=== PATIENT | male | born 1975 | race Caucasian/White ===

== ENCOUNTER → 2022-06-11 | Outpatient (CLI) | payer BC ==
--- NOTE | 2022-06-11 09:05 | US ---
EXAMINATION TYPE: US abdomen complete DATE OF EXAM: 06/11/2022 COMPARISON: CT 2013 CLINICAL HISTORY: 47-year-old male R10.13 EPIGASTRIC PAIN. Epigastric pain and gassiness x 2 weeks TECHNIQUE: Multiple sonographic images of the abdomen are obtained. FINDINGS: EXAM MEASUREMENTS: Liver Length: 15.7 cm Gallbladder Wall: 0.2 cm CBD: 0.5 cm Spleen: 12.3 cm Right Kidney: 13.4 x 6.8 x 5.5 cm Left Kidney: 12.6 x 5.6 x 5.8 cm Difficult and limited study due to patient body habitus Pancreas: Only a portion of the pancreatic neck and body is seen. Pancreatic tail and head are obscu red by bowel gas shadowing. Liver: increased attenuation, decreased visualization of vessels suggestive of fatty infiltrate Gallbladder: borderline hydropic, sludge, 1.5cm stone Evidence for sonographic Corral's sign: no CBD: visualized portions wnl Spleen: wnl Right Kidney: wnl Left Kidney: At least moderate hydronephrosis Upper IVC: wnl Abd Aorta: proximal portion obscured by overlying midline bowel gas, visualized portions of mid and distal appear wnl IMPRESSION: 1. Technically limited exam due to body habitus and bowel gas. 2. Underlying hepatic steatosis. Correlate with LFTs, liver profile, and patient risk factors. 3. Cholelithiasis with a 1.5 cm gallstone. Additional sludge. Gallbladder is borderline distended pro bably due to fasting state. No wall thickening or sonographic Corral sign to suggest acute cholecysti tis at this time. 4. There appears to be at least moderate left-sided hydronephrosis; etiology unclear. Consider urolog y evaluation.
== END | disposition home or self-care (01) ==
LOC: RADUSWWP 07:49
PROVIDERS: ATTEND Internal Medicine
DX: R10.13 Epigastric pain (principal)
CPT/HCPCS: 76700